=== PATIENT | male | born 1975 | race Caucasian/White ===

== ENCOUNTER 2019-10-29 20:50 | Emergency (ER) | payer MEDICARE, OTHER ==
[~2019-10-29] VITALS: Ht 182.9 cm; Wt 82.1 kg
--- NOTE | 2019-10-29 20:56 | NUR ---
BIB MOM FOR C/O L SIDED, PRESSURE CP , NON RADIATING, +NAUSEA, +SOB +DIZZINESS. 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
[2019-10-29] MEDS ORDERED: ASPIRIN 325 MG TABLET PO ONE (21:30)
[2019-10-29] MEDS ORDERED: IV NS 0.9% 1,000 ML BAG IV ONE (21:30)
[2019-10-29] MEDS ORDERED: NITROGLYCERIN 0.4 MG/TAB BOTTLE SL ONE (21:30)
[2019-10-29] MEDS ORDERED: ASPIRIN 325 MG TABLET ONE (21:35)
[2019-10-29] MEDS ORDERED: NITROGLYCERIN 0.4 MG/TAB BOTTLE ONE (21:35)
[2019-10-29 21:44] LABS: BASOPHILS # (AUTO) 0.1 /CMM (0.0-0.2); BASOPHILS % (AUTO) 0.7 % (0.0-2.0); EOSINOPHILS % (AUTO) 6.7 % (0.0-6.0); HEMATOCRIT 36 % (39-51); HEMOGLOBIN 12.1 g/dL (13.5-17.5); LYMPHOCYTES # (AUTO) 1.9 /CMM (0.8-4.8); LYMPHOCYTES % (AUTO) 26.1 % (20.0-44.0); MEAN CORPUSCULAR HGB CONC 33 g/dl (31.0-36.0); MEAN CORPUSCULAR VOLUME 92 fL (80-96); MONOCYTES # (AUTO) 0.6 /CMM (0.1-1.30); MONOCYTES % (AUTO) 8.4 % (2.0-12.0); NEUTROPHILS # (AUTO) 4.2 /CMM (1.8-8.9); NEUTROPHILS % (AUTO) 58.1 % (43.0-81.0); PLATELET COUNT (AUTO) 186 /CMM (150-450); RED BLOOD CELL COUNT(AUTO) 3.92 MIL/uL (4.5-6.0); WHITE BLOOD COUNT (AUTO) 7.2 K/uL (4.3-11.0)
[2019-10-29 21:50] LABS: CALCIUM, SERUM 8.7 mg/dL (8.5-10.1); CARBON DIOXIDE 26 mmol/L (21-32); CHLORIDE 108 mmol/L (98-107); CREATININE 0.9 mg/dL (0.6-1.3); GLUCOSE 109 mg/dL (74-106); SODIUM SERUM 143 mmol/L (136-145); UREA NITROGEN, BLOOD 21 mg/dL (7-18)
[2019-10-29 21:56] LABS: ALANINE AMINOTRANSFERASE 52 U/L (12-78); ALBUMIN 3.6 g/dL (3.4-5.0); ALKALINE PHOSPHATASE 85 U/L (46-116); ASPARTATE AMINOTRANSFERASE 30 U/L (15-37); BILIRUBIN,DIRECT 0.1 mg/dL (0.0-0.2); BILIRUBIN,TOTAL 0.1 mg/dL (0.2-1.0); TOTAL PROTEIN, SERUM 6.6 g/dL (6.4-8.2)
[2019-10-30 01:09] VITALS: BP 132/90
--- NOTE | 2019-10-30 01:09 | NUR ---
Patient discharged to home in stable condition. Written and verbal after care instructions given. Patient verbalizes understanding of instruction. IV removed. Catheter intact and site benign. Pressure and 4x4 applied to site. No bleeding noted.
== END 2019-10-30 01:09 | disposition home or self-care (01) ==
LOC: ER 21:03
DX: R07.89 Other chest pain (principal); R06.02 Shortness of breath; R11.0 Nausea; G40.909 Epilepsy, unspecified, not intractable, without status epilepticus; Z98.890 Other specified postprocedural states; Z98.84 Bariatric surgery status
CPT/HCPCS: 36415 ×2; 71045; 80048; 80076; 84484 ×2; 85025; 85730; 93005; 96360; 99285; J7030

== ENCOUNTER 2020-06-30 07:52 | Emergency (ER) | payer MEDICARE, OTHER ==
[~2020-06-30] VITALS: Ht 182.9 cm; Wt 77.1 kg
--- NOTE | 2020-06-30 08:09 | NUR ---
bibmother, c/o abd and back pain, s/p 1st covid vaccine shot tuesday, 10/17 pain scale. on room air, breathing evenly and unlabored. Connected to the monitor and pulse ox. Kept comfortable, will continue to monitor accordingly.
[2020-06-30] MEDS ORDERED: ONDANSETRON HCL/PF 4 MG/2 ML VIAL ONE (08:12)
[2020-06-30] MEDS ORDERED: MORPHINE SULFATE INJ 4 MG/ML DISP.SYRIN ONE (08:12)
[2020-06-30] MEDS: ONDANSETRON HCL/PF 4 MG/2 ML VIAL IVP ONE ×2 (08:22→11:05)
[2020-06-30 08:25] LABS: BASOPHILS % (AUTO) 0.1 % (0.0-2.0); EOSINOPHILS % (AUTO) 0.2 % (0.0-6.0); HEMATOCRIT 34 % (39-51); LYMPHOCYTES # (AUTO) 0.6 /CMM (0.8-4.8); LYMPHOCYTES % (AUTO) 2.6 % (20.0-44.0); MEAN CORPUSCULAR HGB CONC 33 g/dl (31.0-36.0); MEAN CORPUSCULAR VOLUME 97 fL (80-96); MONOCYTES # (AUTO) 0.9 /CMM (0.1-1.30); MONOCYTES % (AUTO) 3.6 % (2.0-12.0); NEUTROPHILS # (AUTO) 22.8 /CMM (1.8-8.9); NEUTROPHILS % (AUTO) 93.5 % (43.0-81.0); PLATELET COUNT (AUTO) 231 /CMM (150-450); RED BLOOD CELL COUNT(AUTO) 3.49 MIL/uL (4.5-6.0); WHITE BLOOD COUNT (AUTO) 24.3 K/uL (4.3-11.0)
[2020-06-30] MEDS ORDERED: MORPHINE SULFATE INJ 2 MG/ML DISP.SYRIN IV ONE (08:30)
[2020-06-30 08:42] LABS: ALANINE AMINOTRANSFERASE 101 U/L (12-78); ALBUMIN 3.6 g/dL (3.4-5.0); ALKALINE PHOSPHATASE 73 U/L (46-116); ASPARTATE AMINOTRANSFERASE 55 U/L (15-37); BILIRUBIN,DIRECT 0.2 mg/dL (0.0-0.2); BILIRUBIN,TOTAL 0.5 mg/dL (0.2-1.0); CALCIUM, SERUM 8.3 mg/dL (8.5-10.1); CARBON DIOXIDE 31 mmol/L (21-32); CHLORIDE 102 mmol/L (98-107); CREATININE 1.4 mg/dL (0.6-1.3); GLUCOSE 118 mg/dL (74-106); POTASSIUM 4.3 mmol/L (3.5-5.1); SODIUM SERUM 137 mmol/L (136-145); TOTAL PROTEIN, SERUM 6.5 g/dL (6.4-8.2); UREA NITROGEN, BLOOD 25 mg/dL (7-18)
[2020-06-30] MEDS ORDERED: MIDO5TAB4 PO (08:43)
[2020-06-30] MEDS ORDERED: LITH300T PO (08:43)
[2020-06-30] MEDS ORDERED: CLON1TAB12 PO (08:43)
[2020-06-30] MEDS ORDERED: RISP0.2515 PO (08:43)
[2020-06-30] MEDS ORDERED: CARB200T9 PO (08:43)
[2020-06-30] MEDS ORDERED: FERR325T23 PO (08:43)
[2020-06-30] MEDS ORDERED: QUET25TA PO (08:43)
[2020-06-30] MEDS ORDERED: QUET100T PO (08:43)
[2020-06-30] MEDS ORDERED: ROSU10TA29 PO (08:43)
[2020-06-30] MEDS ORDERED: FLUD0.1T PO (08:52)
[2020-06-30] MEDS ORDERED: IOHEXOL-300 100 ML VIAL IV ONE (08:59)
--- NOTE | 2020-06-30 08:59 | NUR ---
wheeled patient to ct scan accompanied by jason
[2020-06-30] MEDS ORDERED: CT SWABBABLE VALVE TRANS SET 1 EA INFUS.SET MC ONE (09:00)
[2020-06-30] MEDS ORDERED: IV NS 0.9% 1,000 ML BAG IV ONE (09:00)
[2020-06-30] MEDS ORDERED: IV NS 0.9% 250 ML IV ONE (09:00)
--- NOTE | 2020-06-30 09:10 | NUR ---
patient came back from ct
--- NOTE | 2020-06-30 09:13 | NUR ---
[facility] CALLED [facility].
--- NOTE | 2020-06-30 09:14 | NUR ---
covid swab collected and sent to lab
[2020-06-30 09:16] LABS: BILIRUBIN,URINE Negative (NEGATIVE); COLOR,URINE YELLOW (YELLOW); LEUKOCYTE ESTERASE ,URINE Negative (NEGATIVE); NITRITE, URINE Negative (NEGATIVE); PROTEIN,URINE Negative (NEGATIVE); UGLUCOSE Negative (NEGATIVE)
[2020-06-30 09:34] LABS: BACTERIA,URINE None seen /HPF (None Seen); RBC,URINE 0-2 /HPF (0-2); SQUAMOUS EPITHELIAL CELL,UR Few /HPF (None Seen)
--- NOTE | 2020-06-30 09:40 | NUR ---
CALLED [facility] [phone]
--- NOTE | 2020-06-30 09:52 | NUR ---
covid negative per lab
[2020-06-30] MEDS ORDERED: PIPERACILLIN /TAZOBACTAM 3.375 G in IV D5W 50 ML IV ONE (10:00)
--- NOTE | 2020-06-30 10:24 | NUR ---
CALLED DR. BETANCUR [phone]
[2020-06-30] MEDS ORDERED: Z GUARD REMEDY 2 OZ OINT TP PRN (10:30)
[2020-06-30] MEDS ORDERED: ACETAMINOPHEN 325 MG TABLET PO PRN (10:30)
[2020-06-30] MEDS ORDERED: MAGNESIUM HYDROXIDE 30 ML UDC PO PRN (10:30)
[2020-06-30] MEDS ORDERED: MAG HYDROX/AL HYDROX/SIMETH 30 ML UDC PO PRN (10:30)
[2020-06-30] MEDS ORDERED: HYDROMORPHONE 1 MG/1 ML DISP.SYRIN IV PRN (10:30)
[2020-06-30] MEDS ORDERED: IV D5/0.45 NACL 1,000 ML IV PRN (10:30)
[2020-06-30] MEDS ORDERED: ONDANSETRON HCL/PF 4 MG/2 ML VIAL IVP PRN (10:30)
[2020-06-30] MEDS ORDERED: HYDROMORPHONE 1 MG/1 ML DISP.SYRIN IV ONE (11:00)
[2020-06-30] MEDS ORDERED: HYDROMORPHONE 1 MG/1 ML DISP.SYRIN ONE ×2 (11:08→15:17)
--- NOTE | 2020-06-30 11:35 | NUR ---
[facility] [phone] DANIEL FAXINHoracio FACE SHEET [phone]
--- NOTE | 2020-06-30 11:45 | NUR ---
[facility] [phone] HAS GI NOT ON PANEL
--- NOTE | 2020-06-30 11:50 | NUR ---
[facility] TRANSFER LINE [phone] [place]. FAXING INFO TO [phone].
[2020-06-30] MEDS ORDERED: PIPERACILLIN /TAZOBACTAM 3.375 G in IV D5W 50 ML IV SCH (12:00)
--- NOTE | 2020-06-30 12:58 | NUR ---
FAXED MORE CLINICALS TO [facility] ATTN LAYTON.
[2020-06-30] MEDS ORDERED: MIDODRINE HCL (5MG) 5 MG TABLET PO SCH (13:00)
--- NOTE | 2020-06-30 13:25 | NUR ---
Pt in bed awake, alert oriented. VSS Pt on his phone. Awaiting transfer
--- NOTE | 2020-06-30 13:37 | NUR ---
[facility]
--- NOTE | 2020-06-30 14:20 | NUR ---
wheeled patient to MRI
[2020-06-30] MEDS ORDERED: HYDROMORPHONE INJ 2 MG/ML DISP.SYRIN IV ONE (15:30)
--- NOTE | 2020-06-30 15:43 | NUR ---
CALLED DR. BETANCUR SPEAKING WITH DR. SHANNON
--- NOTE | 2020-06-30 15:47 | NUR ---
CALLED [facility] WILL SPEAK WITH SURGERY.
--- NOTE | 2020-06-30 15:55 | NUR ---
[facility] PT ACCEPTED UNDER DR. STAUFFER ROOM 7002 CALL THE TRANSFER CENTER 30 MINS BEFORE [facility]. [phone]
--- NOTE | 2020-06-30 16:00 | NUR ---
CALLED [facility] FOR TRANSPORT ETA [phone]
--- NOTE | 2020-06-30 16:03 | NUR ---
CALLED [facility] ETA [phone]
[2020-06-30 16:32] VITALS: BP 124/59
--- NOTE | 2020-06-30 16:38 | NUR ---
Called [facility] [place] and spoke to Yeu GODWIN for pawel
--- NOTE | 2020-06-30 16:42 | NUR ---
patient picked up by private ambulance going to [facility] in no distress.
[2020-06-30] MEDS ORDERED: QUETIAPINE FUMARATE 25 MG TABLET PO SCH (17:00)
[2020-06-30] MEDS ORDERED: clonazePAM 1 MG TABLET PO SCH (17:00)
[2020-06-30] MEDS ORDERED: LITHIUM CARBONATE ER 300 MG TABLET.SA PO SCH (17:00)
[2020-06-30] MEDS ORDERED: CARBAMAZEPINE 200 MG TABLET PO SCH (17:00)
[2020-06-30] MEDS ORDERED: risperiDONE 0.25 MG TABLET PO SCH (18:00)
[2020-06-30] MEDS ORDERED: ATORVASTATIN 10 MG TABLET PO SCH (22:00)
[2020-07-01] MEDS ORDERED: FLUDROCORTISONE 0.1 MG TABLET PO SCH (09:00)
[2020-07-01] MEDS ORDERED: FERROUS SULFATE (325 MG) 325 MG/TAB TABLET PO SCH (09:00)
== END 2020-06-30 16:42 | disposition short-term general hospital (02) ==
LOC: ER 07:58
DX: K80.00 Calculus of gallbladder with acute cholecystitis without obstruction (principal); M79.10 Myalgia, unspecified site; K59.00 Constipation, unspecified; J98.11 Atelectasis; E86.0 Dehydration; Z20.822 Contact with and (suspected) exposure to COVID-19; R74.01 Elevation of levels of liver transaminase levels; Z98.84 Bariatric surgery status; I95.9 Hypotension, unspecified; F20.9 Schizophrenia, unspecified; N17.9 Acute kidney failure, unspecified; F32.9 Major depressive disorder, single episode, unspecified; G40.909 Epilepsy, unspecified, not intractable, without status epilepticus; Z79.899 Other long term (current) drug therapy; Z88.6 Allergy status to analgesic agent
CPT/HCPCS: 36415; 71045; 74177; 74181; 76705; 80048; 80076; 81001; 84484; 85025; 87426; 93005; 96361; 96365; 96375; 96376; 99285; J1170 ×2; J2405; J2543; J7030; J7050; J7060; Q9967; C9803; J2270

== ENCOUNTER 2020-11-16 11:50 | Emergency (ER) | payer MEDICARE, OTHER ==
[~2020-11-16] VITALS: Ht 182.9 cm; Wt 72.6 kg
[~2020-11-16 11:50] MED LIST: CARB200T9 PO; CLON1TAB12 PO; FERR325T23 PO; FLUD0.1T PO; LITH300T PO; MIDO5TAB4 PO; QUET100T PO; QUET25TA PO; RISP0.2515 PO; ROSU10TA29 PO
--- NOTE | 2020-11-16 11:55 | NUR ---
TO ER BED 6, BIB MOTHER, C/O CHILLS AND BODY ACHES SINCE THIS MORNING, AAOX4, BREATHING EVEN AND NON LABORED, SEEN BY
--- NOTE | 2020-11-16 12:23 | NUR ---
SALINE LOCK ESTABLISHED, BLOOD DRAWN AND PICKED UP BY LAB
--- NOTE | 2020-11-16 12:23 | NUR ---
UNABLE TO PROVIDE URINE SAMPLE AT THIS TIME
[2020-11-16 12:32] LABS: BASOPHILS % (AUTO) 0.3 % (0.0-2.0); EOSINOPHILS % (AUTO) 1.4 % (0.0-6.0); HEMATOCRIT 37 % (39-51); HEMOGLOBIN 12.1 g/dL (13.5-17.5); LYMPHOCYTES # (AUTO) 1.5 K/uL (0.8-4.8); LYMPHOCYTES % (AUTO) 16.8 % (20.0-44.0); MEAN CORPUSCULAR HGB CONC 32 g/dl (31.0-36.0); MEAN CORPUSCULAR VOLUME 96 fL (80-96); MONOCYTES # (AUTO) 0.5 K/uL (0.1-1.30); MONOCYTES % (AUTO) 5.9 % (2.0-12.0); NEUTROPHILS # (AUTO) 6.9 K/uL (1.8-8.9); NEUTROPHILS % (AUTO) 75.6 % (43.0-81.0); PLATELET COUNT (AUTO) 331 K/uL (150-450); RED BLOOD CELL COUNT(AUTO) 3.91 MIL/uL (4.5-6.0); WHITE BLOOD COUNT (AUTO) 9.1 K/uL (4.3-11.0)
[2020-11-16 12:54] LABS: CALCIUM, SERUM 8.5 mg/dL (8.5-10.1); CREATININE 1.1 mg/dL (0.6-1.3); POTASSIUM 3.7 mmol/L (3.5-5.1)
[2020-11-16 13:00] LABS: BILIRUBIN,DIRECT 0.2 mg/dL (0.0-0.2); BILIRUBIN,TOTAL 0.4 mg/dL (0.2-1.0); TOTAL PROTEIN, SERUM 6.7 g/dL (6.4-8.2)
--- NOTE | 2020-11-16 13:04 | NUR ---
STILL UNABLE TO GIVE URINE
--- NOTE | 2020-11-16 13:25 | NUR ---
IV removed. Catheter intact and site benign. Pressure and 4x4 applied to site. No bleeding noted.Patient discharged to home in stable condition. Written and verbal after care instructions given. Patient verbalizes understanding of instruction.
[2020-11-16 13:26] VITALS: BP 119/71
== END 2020-11-16 13:27 | disposition home or self-care (01) ==
LOC: ER 11:54
DX: R52 Pain, unspecified (principal); M79.10 Myalgia, unspecified site; Z20.822 Contact with and (suspected) exposure to COVID-19
CPT/HCPCS: 36415; 71045-TC; 80048-TC; 80076-TC; 85025-TC; C9803

== ENCOUNTER 2024-12-23 13:13 | Inpatient (IN) | payer MEDICARE, OTHER ==
[2024-12-23] VITALS (21 sets, daily range): BP systolic 115–138; BP diastolic 50–86; TEMP 98.6; O2SAT 96–100
[~2024-12-23] VITALS: Ht 172.7 cm; Wt 69.1 kg
[2024-12-23] MEDS ORDERED: ACETAMINOPHEN 650 MG/SUPP.RECT RC ONE (13:29)
[2024-12-23 13:39] LABS: PLATELET COUNT (AUTO) 620 K/uL (150-450); RED BLOOD CELL COUNT(AUTO) 3.33 MIL/uL (4.5-6.0); RED CELL DISTRIBUTION WIDTH 15.7 % (11.5-15.0); WHITE BLOOD COUNT (AUTO) 22.6 K/uL (4.3-11.0)
[2024-12-23] MEDS: IV NS 0.9% 1,000 ML BAG IV ONE (13:46)
[2024-12-23] MEDS: ACETAMINOPHEN 650 MG/SUPP.RECT RC ONE (13:47)
[2024-12-23] MEDS: CEFEPIME 1 GM in IV D5W 50 ML IV ONE (13:47)
[2024-12-23] MEDS ORDERED: THIA100T88 PO (13:48)
[2024-12-23] MEDS ORDERED: LAMO25TA5 PO (13:48)
[2024-12-23] MEDS: ACETAMINOPHEN ES 500 MG TABLET PO ONE (13:48)
[2024-12-23] MEDS ORDERED: RISP2TAB85 PO (13:48)
[2024-12-23] MEDS ORDERED: LAMO150T2 PO (13:48)
[2024-12-23] MEDS ORDERED: LORA-259 PO ×2 (13:48)
[2024-12-23] MEDS ORDERED: ZALE10CA PO (13:48)
[2024-12-23 13:52] LABS: INR 1.09 (0.91-1.10)
[2024-12-23 13:53] LABS: APPEARANCE,URINE CLEAR (CLEAR); BLOOD, URINE 1+ Ery/uL (NEGATIVE); LEUKOCYTE ESTERASE ,URINE NEGATIVE (NEGATIVE); NITRITE, URINE NEGATIVE (NEGATIVE); UGLUCOSE NEGATIVE (NEGATIVE)
[2024-12-23 13:57] LABS: ADD URINE CULTURE NO; SQUAMOUS EPITHELIAL CELL,UR None Seen /HPF (None Seen)
[2024-12-23 13:58] LABS: LACTIC ACID 1.6 mmol/L (0.4-2.0)
[2024-12-23 14:02] LABS: ASPARTATE AMINOTRANSFERASE 84 U/L (15-37); CALCIUM, SERUM 9.6 mg/dL (8.5-10.1); CREATININE 1.2 mg/dL (0.6-1.3); SODIUM SERUM 146 mmol/L (136-145); TOTAL PROTEIN, SERUM 7.1 g/dL (6.4-8.2); UREA NITROGEN, BLOOD 32 mg/dL (7-18)
[2024-12-23] MEDS: VANCOMYCIN 1 GM in IV D5W 250 ML IV ONE (14:20)
[2024-12-23] MEDS ORDERED: PIPERACILLIN /TAZOBACTAM 3.375 G in IV D5W 50 ML IV ONE (14:30)
[2024-12-23] MEDS ORDERED: PALI234D IM (14:40)
[2024-12-23 14:50] LABS: ALCOHOL, BLOOD < 3 mg/dL (0-10); SERUM AMMONIA 24 umol/L (11-32)
[2024-12-23] MEDS ORDERED: MAGNESIUM HYDROXIDE 30 ML UDC PO PRN (15:00)
[2024-12-23] MEDS ORDERED: MAG HYDROX/AL HYDROX/SIMETH 30 ML UDC PO PRN (15:00)
[2024-12-23] MEDS ORDERED: IPRATROPIUM NEB FS 0.5 MG/2.5 ML AMPUL.NEB NEB PRN (15:00)
[2024-12-23] MEDS ORDERED: ALBUTEROL FS 2.5 MG/3 ML VIAL.NEB NEB PRN (15:00)
[2024-12-23] MEDS ORDERED: ONDANSETRON HCL/PF 4 MG/2 ML VIAL IVP PRN (15:00)
[2024-12-23] MEDS ORDERED: AZITHROMYCIN 500 MG in IV D5W 250 ML IV SCH (15:00)
[2024-12-23] MEDS ORDERED: DOSING PER PHARMACY-VANCOMYCIN IV XX PRN (15:00)
[2024-12-23] MEDS ORDERED: ACETAMINOPHEN 325 MG TABLET PO PRN (15:00)
[2024-12-23] MEDS ORDERED: Z GUARD REMEDY 4 OZ OINT TP PRN (15:00)
[2024-12-23 15:58] LABS: ABG BASE EXCESS -11.9 mmol/L (-2.0-3.0); ABG OXYGEN SATURATION 94.6 % (94.0-98.0); ABG PCO2 18.0 mmHg (35.0-48.0); ABG PH 7.402 (7.350-7.450); ABG PO2 83.1 mmHg (83.0-108.0); ABG TOTAL HEMOGLOBIN 9.9 G/dL (13.5-17.5); FLOW, BLOOD GAS 7.00 L/min (0.00-30.00); FRACTIONATED INSPIRED OXYGEN 48.0 %; SITE, ABG RIGHT RADIAL
[2024-12-23] MEDS: VANCOMYCIN 750 MG in IV D5W 250 ML IV ONE (16:36)
[2024-12-23] MEDS ORDERED: PANTOPRAZOLE 40 MG VIAL ONE (16:43)
[2024-12-23] MEDS: PANTOPRAZOLE 40 MG VIAL IV SCH (16:50)
[2024-12-23] MEDS ORDERED: OSELTAMIVIR PHOSPHATE 75 MG CAPSULE PO SCH (17:00)
[2024-12-23] MEDS: DOXYCYCLINE 100 MG in IV D5W 100 ML IV SCH (17:25)
[2024-12-23 22:51] LABS: HIV-1/2 ANTIBODY NON REACTIVE (NONREACTIVE)
[2024-12-24] VITALS (32 sets, daily range): BP systolic 106–142; BP diastolic 55–86; TEMP 98–99.4; O2SAT 93–98
[2024-12-24] MEDS: CEFEPIME 1 GM in IV D5W 50 ML IV SCH (02:15)
[2024-12-24] MEDS: IV NS 0.9% 1,000 ML IV PRN (02:50)
[2024-12-24] MEDS: VANCOMYCIN 1 GM in IV D5W 250ml IV SCH (04:34)
[2024-12-24 04:50] LABS: PLATELET COUNT (AUTO) 578 K/uL (150-450); RED BLOOD CELL COUNT(AUTO) 2.89 MIL/uL (4.5-6.0); RED CELL DISTRIBUTION WIDTH 15.8 % (11.5-15.0); WHITE BLOOD COUNT (AUTO) 15.1 K/uL (4.3-11.0)
[2024-12-24 04:55] LABS: CALCIUM, SERUM 9.0 mg/dL (8.5-10.1); CREATININE 0.7 mg/dL (0.6-1.3); PHOSPHORUS 1.2 mg/dL (2.5-4.9); SODIUM SERUM 151.0 mmol/L (136-145); UREA NITROGEN, BLOOD 19.0 mg/dL (7-18)
[2024-12-24 05:10] LABS: LDL 34.0 mg/dL (0-99)
[2024-12-24] MEDS: Sodium Bicarbonate 100 MEQ in IV D5 / 0.2% NACL 1,000 ML IV SCH (08:53)
[2024-12-24] MEDS: OSELTAMIVIR PHOSPHATE 75 MG CAPSULE PO SCH (09:00)
[2024-12-24] MEDS: ACETYLCYSTEINE 10% SOLN 400 MG/4 ML VIAL NEB SCH (10:00)
[2024-12-24] MEDS: CARBAMAZEPINE 200 MG TABLET PO SCH (12:13)
[2024-12-24] MEDS: LITHIUM CARBONATE (300 MG CAP) 300 MG CAPSULE PO SCH (12:13)
[2024-12-24] MEDS: LORAZEPAM 0.5 MG TABLET PO SCH ×2 (12:13→16:15)
[2024-12-24] MEDS: CEFEPIME 2 GM in IV D5W 100 ML IV SCH (13:56)
[2024-12-24] MEDS: POTASSIUM PHOSPHATE MM 7.5 MMOL in IV NS 0.9% 100 ML IV SCH (17:46)
[2024-12-24] MEDS: IPRATROPIUM NEB FS 0.5 MG/2.5 ML AMPUL.NEB NEB PRN (20:05)
[2024-12-24] MEDS: ALBUTEROL HALF STRENGTH 1.25 MG/3 ML VIAL.NEB NEB PRN (20:05)
[2024-12-24] MEDS: QUETIAPINE FUMARATE 100 MG TABLET PO SCH (22:00)
[2024-12-25] VITALS (32 sets, daily range): BP systolic 105–148; BP diastolic 62–90; TEMP 98.4–100.8; O2SAT 92–99
[2024-12-25] MEDS: ACETAMINOPHEN 650 MG/SUPP.RECT RC PRN (00:41)
[2024-12-25 01:08] LABS: HBSAG SCREEN Negative (Negative); HEPATITIS A AB, IgM Negative (Negative); HEPATITIS B CORE AB, IgM Negative (Negative)
[2024-12-25 04:42] LABS: PLATELET COUNT (AUTO) 495 K/uL (150-450); RED BLOOD CELL COUNT(AUTO) 2.51 MIL/uL (4.5-6.0); RED CELL DISTRIBUTION WIDTH 15.2 % (11.5-15.0); WHITE BLOOD COUNT (AUTO) 17.2 K/uL (4.3-11.0)
[2024-12-25 04:59] LABS: ASPARTATE AMINOTRANSFERASE 103.0 U/L (15-37); CALCIUM, SERUM 8.6 mg/dL (8.5-10.1); CREATININE 0.8 mg/dL (0.6-1.3); PHOSPHORUS 1.6 mg/dL (2.5-4.9); TOTAL PROTEIN, SERUM 5.7 g/dL (6.4-8.2); UREA NITROGEN, BLOOD 12.0 mg/dL (7-18)
[2024-12-25 05:06] LABS: SODIUM SERUM 154.0 mmol/L (136-145)
[2024-12-25] MEDS: POTASSIUM CL. PREMIX PERIPHER. 50 ML IV SCH (08:17)
[2024-12-25] MEDS: IV D5W 1,000 ML IV PRN (09:02)
[2024-12-25] MEDS ORDERED: IOHEXOL-350 100 ML VIAL IV ONE (12:05)
[2024-12-25] MEDS ORDERED: CT SWABBABLE VALVE TRANS SET 1 EA INFUS.SET MC ONE (12:05)
[2024-12-25] MEDS ORDERED: IV NS 0.9% 250 ML IV ONE (12:05)
[2024-12-25] MEDS: POTASSIUM PHOSPHATE MM 7.5 MMOL in IV NS 0.9% 100 ML IV SCH (16:30)
[2024-12-26] VITALS (23 sets, daily range): BP systolic 121–136; BP diastolic 66–82; TEMP 98.9–99; O2SAT 93–100
[2024-12-26 04:37] LABS: PLATELET COUNT (AUTO) 480 K/uL (150-450); RED BLOOD CELL COUNT(AUTO) 2.41 MIL/uL (4.5-6.0); RED CELL DISTRIBUTION WIDTH 15.7 % (11.5-15.0); WHITE BLOOD COUNT (AUTO) 20.2 K/uL (4.3-11.0)
[2024-12-26 04:43] LABS: CALCIUM, SERUM 8.6 mg/dL (8.5-10.1); CREATININE 0.7 mg/dL (0.6-1.3); SODIUM SERUM 149.0 mmol/L (136-145); UREA NITROGEN, BLOOD 10.0 mg/dL (7-18)
[2024-12-26] MEDS: POTASSIUM CL. PREMIX PERIPHER. 50 ML IV SCH (09:54)
[2024-12-26] MEDS ORDERED: OLANZAPINE 10 MG VIAL IM PRN (11:30)
[2024-12-26] MEDS: POTASSIUM PHOSPHATE MM 7.5 MMOL in IV NS 0.9% 100 ML IV SCH (15:59)
[2024-12-26 21:06] LABS: LEGIONELLA PNEUMOPHILIA AB Non Reactive (Non Reactive)
[2024-12-27] VITALS (12 sets, daily range): BP systolic 119–138; BP diastolic 66–82; TEMP 97.7–100.4; O2SAT 94–100
[2024-12-27 06:15] LABS: PLATELET COUNT (AUTO) 504 K/uL (150-450); RED BLOOD CELL COUNT(AUTO) 2.47 MIL/uL (4.5-6.0); RED CELL DISTRIBUTION WIDTH 15.6 % (11.5-15.0); WHITE BLOOD COUNT (AUTO) 18.0 K/uL (4.3-11.0)
[2024-12-27 06:29] LABS: CALCIUM, SERUM 9.0 mg/dL (8.5-10.1); CREATININE 0.7 mg/dL (0.6-1.3); PHOSPHORUS 3.1 mg/dL (2.5-4.9); SODIUM SERUM 146.0 mmol/L (136-145); UREA NITROGEN, BLOOD 14.0 mg/dL (7-18)
[2024-12-27 10:11] LABS: CHLAMYDIA AB, IgG <0.91 ratio (0.00-0.90)
[2024-12-28] VITALS (13 sets, daily range): BP systolic 116–139; BP diastolic 64–82; TEMP 98.2–100.6; O2SAT 92–99
[2024-12-28 06:21] LABS: PLATELET COUNT (AUTO) 499 K/uL (150-450); RED BLOOD CELL COUNT(AUTO) 2.53 MIL/uL (4.5-6.0); RED CELL DISTRIBUTION WIDTH 15.6 % (11.5-15.0); WHITE BLOOD COUNT (AUTO) 19.6 K/uL (4.3-11.0)
[2024-12-28 08:05] LABS: ASPARTATE AMINOTRANSFERASE 103.0 U/L (15-37); CALCIUM, SERUM 8.6 mg/dL (8.5-10.1); CREATININE 0.6 mg/dL (0.6-1.3); PHOSPHORUS 3.2 mg/dL (2.5-4.9); SODIUM SERUM 141.0 mmol/L (136-145); TOTAL PROTEIN, SERUM 6.3 g/dL (6.4-8.2); UREA NITROGEN, BLOOD 15.0 mg/dL (7-18)
[2024-12-28] MEDS: LORAZEPAM INJ 2 MG/ML VIAL IV PRN (10:06)
[2024-12-28 13:58] LABS: EOSINOPHILS % (MANUAL) 2 % (0-4); LYMPHOCYTES % (MANUAL) 2 % (16-48); MONOCYTES % (MANUAL) 2 % (0-11.0); MYELOCYTES % 2 % (0-0); NEUTROPHILS % (MANUAL) 92 (42-76); PLATELET ESTIMATE INCREASED
[2024-12-28] MEDS: VALPROATE 1,000 MG in IV D5W 100 ML IV ONE (18:00)
[2024-12-29] VITALS (13 sets, daily range): BP systolic 112–143; BP diastolic 64–81; TEMP 98.1–98.8; O2SAT 94–99
[2024-12-29 06:40] LABS: PLATELET COUNT (AUTO) 472 K/uL (150-450); RED BLOOD CELL COUNT(AUTO) 2.55 MIL/uL (4.5-6.0); RED CELL DISTRIBUTION WIDTH 15.5 % (11.5-15.0); WHITE BLOOD COUNT (AUTO) 17.7 K/uL (4.3-11.0)
[2024-12-29 07:10] LABS: ASPARTATE AMINOTRANSFERASE 77.0 U/L (15-37); CALCIUM, SERUM 8.7 mg/dL (8.5-10.1); CREATININE 0.7 mg/dL (0.6-1.3); PHOSPHORUS 2.8 mg/dL (2.5-4.9); SODIUM SERUM 143.0 mmol/L (136-145); TOTAL PROTEIN, SERUM 6.4 g/dL (6.4-8.2); UREA NITROGEN, BLOOD 17.0 mg/dL (7-18)
[2024-12-29] MEDS ORDERED: TPN/PPN PER PHARMACY IV PRN (12:30)
[2024-12-29 12:53] LABS: BAND % (MANUAL) 2 % (0.0-5.0); LYMPHOCYTES % (MANUAL) 5 % (16-48); MONOCYTES % (MANUAL) 3 % (0-11.0); MYELOCYTES % 2 % (0-0); NEUTROPHILS % (MANUAL) 88 (42-76)
[2024-12-29 12:54] LABS: PLATELET ESTIMATE INCREASED
[2024-12-29] MEDS ORDERED: VALPROATE 1,000 MG in IV D5W 100 ML IV SCH (13:30)
[2024-12-29] MEDS ORDERED: DEXTROSE 50%-WATER 50 ML DISP.SYRIN IV PRN (14:00)
[2024-12-29] MEDS: VALPROATE 500 MG in IV D5W 100 ML IV SCH (15:49)
[2024-12-29] MEDS: INSULIN REGULAR, HUMAN 100 UNIT/ML 3 ML VIAL SQ PRN (17:16)
[2024-12-29] MEDS: BLOOD SUGAR DIAGNOSTIC 1 EACH STRIP IN SCH (17:16)
[2024-12-29] MEDS: TPN #1 IV SCH (17:44)
[2024-12-30] VITALS (13 sets, daily range): BP systolic 109–131; BP diastolic 60–70; TEMP 98–99.9; O2SAT 94–99
[2024-12-30 07:24] LABS: PLATELET COUNT (AUTO) 466 K/uL (150-450); RED BLOOD CELL COUNT(AUTO) 2.66 MIL/uL (4.5-6.0); RED CELL DISTRIBUTION WIDTH 14.9 % (11.5-15.0); WHITE BLOOD COUNT (AUTO) 17.2 K/uL (4.3-11.0)
[2024-12-30 07:40] LABS: ASPARTATE AMINOTRANSFERASE 77.0 U/L (15-37); CALCIUM, SERUM 8.6 mg/dL (8.5-10.1); CREATININE 0.7 mg/dL (0.6-1.3); PHOSPHORUS 2.7 mg/dL (2.5-4.9); SODIUM SERUM 140.0 mmol/L (136-145); TOTAL PROTEIN, SERUM 6.6 g/dL (6.4-8.2); UREA NITROGEN, BLOOD 17.0 mg/dL (7-18)
[2024-12-30 07:49] LABS: LDL 82 mg/dL (0-99)
[2024-12-30] MEDS ORDERED: TPN #3 IV SCH (13:33)
[2024-12-30] MEDS: FAT EMULSION 20% 500 ML in PREMIX 1 EA IV SCH (13:56)
[2024-12-30] MEDS: TPN #2 IV SCH (17:53)
[2024-12-31] VITALS (8 sets, daily range): BP systolic 110–130; BP diastolic 60–83; TEMP 97.6–98.3; O2SAT 95–99
[2024-12-31 07:15] LABS: CALCIUM, SERUM 9.0 mg/dL (8.5-10.1); CREATININE 0.8 mg/dL (0.6-1.3); PHOSPHORUS 3.0 mg/dL (2.5-4.9); SODIUM SERUM 137.0 mmol/L (136-145); UREA NITROGEN, BLOOD 15.0 mg/dL (7-18)
[2024-12-31 07:40] LABS: PLATELET COUNT (AUTO) 465 K/uL (150-450); RED BLOOD CELL COUNT(AUTO) 2.89 MIL/uL (4.5-6.0); RED CELL DISTRIBUTION WIDTH 14.7 % (11.5-15.0); WHITE BLOOD COUNT (AUTO) 18.7 K/uL (4.3-11.0)
[2024-12-31 09:06] LABS: LDL 93 mg/dL (0-99)
[2024-12-31] MEDS ORDERED: DOSING PER PHARMACY-VANCOMYCIN IV XX PRN (11:00)
[2024-12-31] MEDS: VANCOMYCIN 1 GM in IV D5W 250ml IV SCH (13:03)
[2024-12-31 13:42] LABS: BAND % (MANUAL) 1 % (0.0-5.0); EOSINOPHILS % (MANUAL) 1 % (0-4); LYMPHOCYTES % (MANUAL) 5 % (16-48); MONOCYTES % (MANUAL) 3 % (0-11.0); MYELOCYTES % 3 % (0-0); NEUTROPHILS % (MANUAL) 87 (42-76); PLATELET ESTIMATE INCREASED
[2024-12-31] MEDS: TPN #3 IV SCH (15:17)
[2025-01-01] VITALS (13 sets, daily range): BP systolic 108–125; BP diastolic 64–78; TEMP 97.3–98.4; O2SAT 95–99
[2025-01-01 08:49] LABS: CALCIUM, SERUM 8.5 mg/dL (8.5-10.1); CREATININE 0.7 mg/dL (0.6-1.3); PHOSPHORUS 2.6 mg/dL (2.5-4.9); SODIUM SERUM 136.0 mmol/L (136-145); UREA NITROGEN, BLOOD 17.0 mg/dL (7-18)
[2025-01-01] MEDS ORDERED: Magnesium 1GM/D5W 100ML PREMIX 100 ML IV SCH (13:00)
[2025-01-01] MEDS: POTASSIUM CL. PREMIX PERIPHER. 50 ML IV SCH (14:36)
[2025-01-01] MEDS: FAT EMULSION 20% 500 ML in PREMIX 1 EA IV SCH (16:33)
[2025-01-01] MEDS: TPN #4 IV SCH (22:23)
[2025-01-02] VITALS (8 sets, daily range): BP systolic 115–138; BP diastolic 62–82; TEMP 97.5–98.4; O2SAT 96–100
[2025-01-02 06:50] LABS: PLATELET COUNT (AUTO) 465 K/uL (150-450); RED BLOOD CELL COUNT(AUTO) 3.11 MIL/uL (4.5-6.0); RED CELL DISTRIBUTION WIDTH 14.5 % (11.5-15.0); WHITE BLOOD COUNT (AUTO) 17.4 K/uL (4.3-11.0)
[2025-01-02 06:56] LABS: CALCIUM, SERUM 8.9 mg/dL (8.5-10.1); CREATININE 0.7 mg/dL (0.6-1.3); PHOSPHORUS 2.5 mg/dL (2.5-4.9); SODIUM SERUM 132.0 mmol/L (136-145); UREA NITROGEN, BLOOD 16.0 mg/dL (7-18)
[2025-01-02] MEDS ORDERED: BARIUM SULFATE 98% 135 ML SUSP.RECON PO ONE (10:10)
[2025-01-03] VITALS (12 sets, daily range): BP systolic 106–116; BP diastolic 62–84; TEMP 98–98.6; O2SAT 95–100
[2025-01-03] MEDS ORDERED: TPN#5 IV SCH (02:31)
[2025-01-03] MEDS: TPN#5 IV SCH (03:02)
[2025-01-03 07:55] LABS: PLATELET COUNT (AUTO) 477 K/uL (150-450); RED BLOOD CELL COUNT(AUTO) 3.32 MIL/uL (4.5-6.0); RED CELL DISTRIBUTION WIDTH 14.7 % (11.5-15.0); WHITE BLOOD COUNT (AUTO) 14.8 K/uL (4.3-11.0)
[2025-01-03 07:59] LABS: CALCIUM, SERUM 9.4 mg/dL (8.5-10.1); CREATININE 0.7 mg/dL (0.6-1.3); PHOSPHORUS 3.3 mg/dL (2.5-4.9); SODIUM SERUM 137.0 mmol/L (136-145); UREA NITROGEN, BLOOD 14.0 mg/dL (7-18)
[2025-01-03 12:28] LABS: LYMPHOCYTES % (MANUAL) 7 % (16-48); MONOCYTES % (MANUAL) 3 % (0-11.0); MYELOCYTES % 3 % (0-0); NEUTROPHILS % (MANUAL) 87 (42-76)
[2025-01-03 12:29] LABS: PLATELET ESTIMATE INCREASED
[2025-01-03] MEDS: TPN #6 IV SCH (15:29)
[2025-01-03] MEDS: LORAZEPAM 0.5 MG TABLET PO PRN (15:32)
[2025-01-04] VITALS (8 sets, daily range): BP systolic 109–144; BP diastolic 62–99; TEMP 97.5–98.7; O2SAT 97–99
[2025-01-04 07:21] LABS: PLATELET COUNT (AUTO) 422 K/uL (150-450); RED BLOOD CELL COUNT(AUTO) 3.18 MIL/uL (4.5-6.0); RED CELL DISTRIBUTION WIDTH 15.2 % (11.5-15.0); WHITE BLOOD COUNT (AUTO) 13.6 K/uL (4.3-11.0)
[2025-01-04 07:58] LABS: CALCIUM, SERUM 9.1 mg/dL (8.5-10.1); CREATININE 0.8 mg/dL (0.6-1.3); PHOSPHORUS 3.7 mg/dL (2.5-4.9); SODIUM SERUM 141.0 mmol/L (136-145); UREA NITROGEN, BLOOD 15.0 mg/dL (7-18)
[2025-01-04] MEDS ORDERED: ANESTHESIA TRAY IN PYXIS 1 EA TRAY MC ONE (09:26)
[2025-01-04] MEDS: TPN #7 IV SCH (16:25)
[2025-01-05 04:00] VITALS: BP 114/65; TEMP 97.7; O2SAT 99
[2025-01-05 07:30] VITALS: O2SAT 93
[2025-01-05 07:44] LABS: PLATELET COUNT (AUTO) 428 K/uL (150-450); RED BLOOD CELL COUNT(AUTO) 3.06 MIL/uL (4.5-6.0); RED CELL DISTRIBUTION WIDTH 14.6 % (11.5-15.0); WHITE BLOOD COUNT (AUTO) 12.1 K/uL (4.3-11.0)
[2025-01-05 07:45] VITALS: O2SAT 99
[2025-01-05 07:53] LABS: CALCIUM, SERUM 8.8 mg/dL (8.5-10.1); CREATININE 0.8 mg/dL (0.6-1.3); PHOSPHORUS 3.2 mg/dL (2.5-4.9); SODIUM SERUM 139.0 mmol/L (136-145); UREA NITROGEN, BLOOD 14.0 mg/dL (7-18)
[2025-01-05 08:00] VITALS: BP 111/67; TEMP 97.7; O2SAT 94
[2025-01-05 09:51] LABS: BAND % (MANUAL) 1 % (0.0-5.0); EOSINOPHILS % (MANUAL) 1 % (0-4); LYMPHOCYTES % (MANUAL) 7 % (16-48); MONOCYTES % (MANUAL) 4 % (0-11.0); NEUTROPHILS % (MANUAL) 87 (42-76); PLATELET ESTIMATE ADEQUATE
== END 2025-01-05 15:00 | disposition home health service (06) | DRG 871 ==
LOC: ER 13:18 → ICU 17:33 → TELE1 12-26 17:55 → MEDSG1 01-04 08:29
PROVIDERS: ADMIT Nurse Practitioner Acute Care; ATTEND Internal Medicine
PROC: 02HV33Z Insertion of Infusion Device into Superior Vena Cava, Percutaneous Approach (ICD-10-PCS; principal; 2024-12-28)
PROC: B548ZZA Ultrasonography of Superior Vena Cava, Guidance (ICD-10-PCS; 2024-12-28)
PROC: 0D738ZZ Dilation of Lower Esophagus, Via Natural or Artificial Opening Endoscopic (ICD-10-PCS; 2025-01-04)
DX: A41.9 Sepsis, unspecified organism (principal); G92.8 Other toxic encephalopathy; J69.0 Pneumonitis due to inhalation of food and vomit; J96.01 Acute respiratory failure with hypoxia; E87.20 Acidosis, unspecified; F31.64 Bipolar disorder, current episode mixed, severe, with psychotic features; K22.2 Esophageal obstruction; N17.9 Acute kidney failure, unspecified; R65.20 Severe sepsis without septic shock; G40.909 Epilepsy, unspecified, not intractable, without status epilepticus; I10 Essential (primary) hypertension; D53.9 Nutritional anemia, unspecified; E87.0 Hyperosmolality and hypernatremia; F25.9 Schizoaffective disorder, unspecified; E86.0 Dehydration; E87.6 Hypokalemia; Z87.820 Personal history of traumatic brain injury; Z98.84 Bariatric surgery status; Z20.822 Contact with and (suspected) exposure to COVID-19; F41.9 Anxiety disorder, unspecified; I95.89 Other hypotension; F39 Unspecified mood [affective] disorder; E83.89 Other disorders of mineral metabolism; F29 Unspecified psychosis not due to a substance or known physiological condition; R74.01 Elevation of levels of liver transaminase levels; E88.89 Other specified metabolic disorders
CPT/HCPCS: 31720; 36415; 36600; 70450-TC; 70496-TC; 70498-TC; 71045-TC; 71250-TC; 74230-TC; 80048-TC; 80053-TC; 80061-TC; 80076-TC; 80202-TC; 81001; 82040-TC; 82140-TC; 82607-TC; 82803-TC; 82962-TC; 83605-TC; 83735-TC; 83880; 84100-TC; 84134-TC; 84439-TC; 84443-TC; 84481; 84484-TC; 85025-TC; 85027-TC; 85730-TC; 86631; 86713; 87040-TC; 87070-TC; 87081-TC; 87086-TC; 87205-TC; 87806; 92526; 92611; 93307-TC; 93971-TC; 94640-TC; 94760-TC; 94799-TC; 97110-TC; 97116-TC; 97530-TC; A4216; A4223; A4624; C1726; G0378; G0480; J0692; J1815; J2060; J2470; J2543; J2704; J3373; J3374; J3480; J3490; J7030; J7050; J7060; J7070; Q9967